=== PATIENT | male | born 1980 | race Caucasian/White ===

== ENCOUNTER 2024-04-13 13:45 | Inpatient (IN) | payer OTHER ==
[2024-04-13 14:11] VITALS: BMI 24.3
[2024-04-13] MEDS ORDERED: IBUPROFEN 400 MG TABLET (FP) PO PRN (17:59)
[2024-04-13] MEDS ORDERED: NALOXONE (NYS OPIOID OVERDOSE PROGRAM) 4 MG/0.1 ML SPRAY NS PRN (17:59)
[2024-04-13] MEDS ORDERED: hydrOXYzine PAMOATE 25 MG CAPSULE (FP) PO PRN (17:59)
[2024-04-13] MEDS ORDERED: LOPERAMIDE HCL 2 MG CAPSULE PO PRN (17:59)
[2024-04-13] MEDS ORDERED: ACETAMINOPHEN 325 MG TABLET (FP) PO PRN (17:59)
[2024-04-13] MEDS ORDERED: BENZONATATE 200 MG CAPSULE PO PRN (17:59)
[2024-04-13] MEDS ORDERED: MAGNESIUM HYDROX 2400MG/30ML ORAL SUSPENSION 30 ML CUP PO PRN (17:59)
[2024-04-13] MEDS ORDERED: BENZOCAINE/MENTHOL (CHLORASEPTIC ) LOZENGE MM PRN (17:59)
[2024-04-13] MEDS ORDERED: NICOTINE POLACRILEX 2 MG GUM BUC PRN (17:59)
[2024-04-13] MEDS ORDERED: guaiFENesin 600 MG TABLET.ER (FP) PO PRN (17:59)
[2024-04-13] MEDS ORDERED: NALOXONE (NARCAN) HCL 4 MG/0.1 ML SPRAY NS PRN (17:59)
[2024-04-13] MEDS ORDERED: MAG HYDROX/AL HYDROX/SIMETH 30 ML UNIT-DOSE CUP PO PRN (17:59)
[2024-04-13] MEDS ORDERED: POLYETHYLENE GLYCOL (HEALTHYLAX) 3350 17 GM PACKET PO PRN (17:59)
[2024-04-13] MEDS ORDERED: IBUPROFEN 600 MG TABLET (FP) PO PRN (17:59)
[2024-04-13] MEDS: THIAMINE 100 MG TABLET PO SCH (21:33)
[2024-04-13] MEDS: MELATONIN 5 MG TABLETS PO SCH (21:33)
[2024-04-13] MEDS: TUBERCULIN PPD 5 TU/0.1ML SYRINGE (IN PATIENT USE ONLY) ID ONE (21:49)
[2024-04-13 22:15] VITALS: RESP 16
[2024-04-14 06:47] VITALS: BP 115/69; PULSE 61; TEMP 97.7
[2024-04-14] MEDS ORDERED: methaDONE HCL 10 MG TABLET PO SCH (09:15)
[2024-04-14] MEDS ORDERED: methaDONE 40 MG, methaDONE 30 MG PO SCH (09:20)
[2024-04-14] MEDS ORDERED: NICOTINE 21 MG/24 HOURS TOPICAL PATCH TD SCH (10:00)
[2024-04-14] MEDS ORDERED: PRENATAL VITAMINS W/ FOLIC ACID TABLET (FP) PO SCH (10:00)
== END 2024-04-14 09:26 | disposition left against medical advice (07) | DRG 770 ==
LOC: YASAS 13:45 → Y3W 20:00
PROVIDERS: ADMIT Allergy & Immunology; ATTEND Psychiatry & Neurology Pain Medicine
PROC: HZ42ZZZ Group Counseling for Substance Abuse Treatment, Cognitive-Behavioral (ICD-10-PCS; principal; 2024-04-13)
DX: F11.20 Opioid dependence, uncomplicated (principal); F14.20 Cocaine dependence, uncomplicated; F13.20 Sedative, hypnotic or anxiolytic dependence, uncomplicated; F17.210 Nicotine dependence, cigarettes, uncomplicated; B18.2 Chronic viral hepatitis C
CPT/HCPCS: 80305; 80307; 87811; 93005; 93010

== ENCOUNTER 2025-01-19 11:16 | Inpatient (IN) | payer OTHER ==
[2025-01-19 11:43] VITALS: BMI 22.8
[2025-01-19] MEDS ORDERED: BENZOCAINE/MENTHOL (CHLORASEPTIC ) LOZENGE MM PRN (12:37)
[2025-01-19] MEDS ORDERED: guaiFENesin 600 MG TABLET.ER (FP) PO PRN (12:37)
[2025-01-19] MEDS ORDERED: IBUPROFEN 400 MG TABLET (FP) PO PRN (12:37)
[2025-01-19] MEDS ORDERED: MAG HYDROX/AL HYDROX/SIMETH 30 ML UNIT-DOSE CUP PO PRN (12:37)
[2025-01-19] MEDS ORDERED: ACETAMINOPHEN 325 MG TABLET (FP) PO PRN (12:37)
[2025-01-19] MEDS ORDERED: MAGNESIUM HYDROX 2400MG/30ML ORAL SUSPENSION 30 ML CUP PO PRN (12:37)
[2025-01-19] MEDS ORDERED: LOPERAMIDE HCL 2 MG CAPSULE PO PRN (12:37)
[2025-01-19] MEDS ORDERED: NALOXONE (NARCAN) HCL 4 MG/0.1 ML SPRAY NS PRN (12:37)
[2025-01-19] MEDS ORDERED: NICOTINE POLACRILEX 4 MG GUM BUC PRN (12:37)
[2025-01-19] MEDS ORDERED: POLYETHYLENE GLYCOL (HEALTHYLAX) 3350 17 GM PACKET PO PRN (12:37)
[2025-01-19] MEDS ORDERED: DICYCLOMINE HCL 10 MG CAPSULE PO PRN (12:37)
[2025-01-19] MEDS ORDERED: BISMUTH SUBSALICYLATE 524 MG/30 ML PO PRN (12:37)
[2025-01-19] MEDS ORDERED: IBUPROFEN 600 MG TABLET (FP) PO PRN (12:37)
[2025-01-19] MEDS ORDERED: BENZONATATE 200 MG CAPSULE PO PRN (12:37)
[2025-01-19] MEDS ORDERED: PRENATAL VITAMINS W/ FOLIC ACID TABLET (FP) PO ONE (13:18)
[2025-01-19] MEDS ORDERED: BUPRENORPHINE/NALOXONE 0.5 MG/0.125 MG FILM ONE (13:18)
[2025-01-19] MEDS: BUPRENORPHINE/NALOXONE 0.5 MG/0.125 MG FILM SL ONE ×2 (13:20→22:31)
[2025-01-19] MEDS: PRENATAL VITAMINS W/ FOLIC ACID TABLET (FP) PO SCH (13:20)
[2025-01-19] MEDS: ACAMPROSATE CALCIUM 333 MG TABLET.DR PO SCH (13:55)
[2025-01-19] MEDS: MELATONIN 5 MG TABLETS PO SCH (22:29)
[2025-01-19] MEDS: MIRTAZAPINE 15 MG TABLET (FP) PO SCH (22:29)
[2025-01-19] MEDS: THIAMINE 100 MG TABLET PO SCH (22:29)
[2025-01-20] MEDS: BUPRENORPHINE/NALOXONE 0.5 MG/0.125 MG FILM SL SCH (09:15)
[2025-01-20] MEDS: METHOCARBAMOL 500 MG TABLET PO PRN (22:37)
[2025-01-20] MEDS: MELATONIN 5 MG TABLETS PO SCH (22:38)
[2025-01-21] MEDS: hydrOXYzine PAMOATE 25 MG CAPSULE (FP) PO PRN (03:24)
[2025-01-21] MEDS: ONDANSETRON *ODT* 4 MG TABLET SL PRN (06:50)
[2025-01-21] MEDS: BUPRENORPHINE/NALOXONE 2 MG/0.5 MG FILM PACKET SL SCH (10:44)
[2025-01-21] MEDS: TRIMETHOBENZAMIDE HCL 200MG/2ML INJ IM ONE (11:42)
[2025-01-21 11:44] VITALS: BP 141/72; PULSE 48; RESP 16; TEMP 98.9
[2025-01-22] MEDS ORDERED: BUPRENORPHINE/NALOXONE 4 MG/1 MG FILM PACKET SL SCH (10:00)
[2025-01-23] MEDS ORDERED: BUPRENORPHINE/NALOXONE 8 MG/2 MG FILM PACKET SL SCH (10:00)
[2025-01-24] MEDS ORDERED: BUPRENORPHINE/NALOXONE 8 MG/2 MG FILM PACKET SL SCH (10:00)
== END 2025-01-21 12:21 | disposition home or self-care (01) | DRG 773 ==
LOC: YASAS 11:16 → Y6N 13:28
PROVIDERS: ADMIT Allergy & Immunology; ATTEND Allergy & Immunology
PROC: HZ2ZZZZ Detoxification Services for Substance Abuse Treatment (ICD-10-PCS; principal; 2025-01-19)
DX: F11.23 Opioid dependence with withdrawal (principal); F10.230 Alcohol dependence with withdrawal, uncomplicated; F14.10 Cocaine abuse, uncomplicated; F17.210 Nicotine dependence, cigarettes, uncomplicated; B18.2 Chronic viral hepatitis C; Z86.19 Personal history of other infectious and parasitic diseases
CPT/HCPCS: 36415; 80307; 93005; 93010; Q0162